=== PATIENT | male | born 2000 | race African-American/Black ===

== ENCOUNTER 2020-10-13 11:20 | Inpatient (IN) | payer OTHER ==
[~2020-10-13] VITALS: Ht 172.7 cm; Wt 66.2 kg
[2020-10-13] MEDS ORDERED: NS 1,000 ML IV ONE ×3 (11:45→14:20)
[2020-10-13 12:23] LABS: BASO % 0.3 % (0.0-1.0); HEMATOCRIT 44.1 % (42.0-52.0); HEMOGLOBIN 14.5 g/dl (13.5-17.5); LYMPH # 0.6 10^3/uL (1.5-5.0); LYMPH % 3.8 % (24.0-44.0); MEAN CORPUSCULAR HEMOGLOBIN 27.7 pg (27.0-33.0); MEAN CORPUSCULAR HGB CONC 32.9 g/dl (32.0-36.5); MEAN CORPUSCULAR VOLUME 84.3 fl (80.0-96.0); MONO # 0.7 10^3/uL (0.0-0.8); MONO % 4.9 % (2.0-8.0); NEUTROPHILS # 13.4 10^3/uL (1.5-8.5); NEUTROPHILS % 90.5 % (36.0-66.0); PLATELET COUNT, AUTOMATED 181 10^3/uL (150-450); RED BLOOD COUNT 5.23 10^6/uL (4.30-6.10); WHITE BLOOD COUNT 14.8 10^3/uL (4.0-10.0)
[2020-10-13] MEDS ORDERED: ACETAMINOPHEN 325 MG TAB PO ONE (12:40)
[2020-10-13] MEDS ORDERED: PANTOPRAZOLE 40MG VIAL (C9113 PER 1) IV ONE (12:50)
[2020-10-13] MEDS ORDERED: METOCLOPRAMIDE INJ 10MG/2ML VIAL (J2765 PER 1) IV ONE (12:50)
[2020-10-13 13:50] LABS: ACETAMINOPHEN LEVEL 3.5 UG/ML (10.0-30.0); ALBUMIN 3.8 GM/DL (3.2-5.2); ALT/SGPT 172 U/L (12-78); BILIRUBIN,DIRECT 0.3 MG/DL (0.0-0.2); BILIRUBIN,TOTAL 0.9 MG/DL (0.2-1.0); BLOOD UREA NITROGEN 9 MG/DL (7-18); CALCIUM LEVEL 9.1 MG/DL (8.5-10.1); CARBON DIOXIDE LEVEL 23 MEQ/L (21-32); CHLORIDE LEVEL 105 MEQ/L (98-107); CPK CREATINE PHOSPHOKINASE 81850 U/L (39-308); CREATININE FOR GFR 1.31 MG/DL (0.70-1.30); ETHYL ALCOHOL (ETHANOL) 0.003 % (0.000-0.010); GLUCOSE, FASTING 75 MG/DL (70-100); POTASSIUM SERUM 3.7 MEQ/L (3.5-5.1); SALICYLATE LEVEL < 1.7 MG/DL (5.0-30.0); SODIUM LEVEL 139 MEQ/L (136-145); THYROID STIMULATING HORMONE 0.443 uIU/ML (0.463-3.98); TOTAL PROTEIN 7.9 GM/DL (6.4-8.2)
[2020-10-13 14:08] LABS: AMPHETAMINES LEVEL URINE NEGATIVE (NEGATIVE); BARBITURATES URINE NEGATIVE (NEGATIVE); BENZODIAZEPINES URINE NEGATIVE (NEGATIVE); CANNABINOIDS URINE NEGATIVE (NEGATIVE); COCAINE METABOLITE URINE NEGATIVE (NEGATIVE); METHADONE URINE NEGATIVE (NEGATIVE); OPIATES URINE NEGATIVE (NEGATIVE); PHENCYCLIDINE URINE NEGATIVE (NEGATIVE)
[2020-10-13 14:37] LABS: RSV AMPLIFICATION NEGATIVE (NEGATIVE)
[2020-10-13] MEDS ORDERED: LR 1,000 ML IV ONE (15:00)
--- NOTE | 2020-10-13 15:38 | HPE ---
HISTORY AND PHYSICAL DATE OF ADMISSION: 10/13/2020 PRINCIPAL DIAGNOSIS: Rhabdomyolysis. 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 He is admitted for rhabdomyolysis with CK of over 81,000. He has been aggressively weight training over the last several weeks, increasing the volume of his lifting significantly. During that period of time, he developed pain in his larger muscle groups chest, back, and thighs in particular. He has been doing a lot of running. Today he was febrile and felt aching all over. He had eaten a few berries off a tree while out running on a dare and attributed his ill feeling to that. He developed a fever to 102 and came to the emergency room. Lab work shows a leukocytosis and he has a CK of over 81,000. His creatinine is 1.3; I do not know his baseline creatinine, we have no available records, and he does not think he has ever had routine lab work done. PAST MEDICAL HISTORY: Entirely benign. PAST SURGICAL HISTORY: Negative. MEDICATIONS: None. He does take creatinine [id number] as part of his weight training program (this can raise serum creatinine). ALLERGIES: None. FAMILY HISTORY: Non-contributory. REVIEW OF SYSTEMS: No palpitations, shortness of breath, cough, frequency, urgency, or dysuria. His urine has become roblero to brownish colored. PHYSICAL EXAMINATION: VITAL SIGNS: Temperature 102 degrees, blood pressure 129/67, pulse 98, respirations 16, 99% O2 saturation. GENERAL APPEARANCE: He is resting comfortably in bed talking to his mother on the phone. HEENT: Pupils are equal, round, and reactive to light. Oropharynx benign. NECK: No masses. LUNGS: Clear. HEART: Regular rate without murmur. ABDOMEN: Soft and nontender with no masses. EXTREMITIES: Good distal pulses. Tender to palpate trapezius. Latissimus, chest muscles, and thighs are nontender to palpate. There is no tense feeling to the muscles they are just tender to touch. LABORATORY DATA: Sodium 139, potassium 3.7, BUN 9, creatinine 1.3, AST 588, ALT 177. CK 81,850. TSH essentially normal. Ethyl alcohol 0.003. Tox screen negative. White count 14.8, hemoglobin 14.5, platelets 181,000. COVID screen negative. IMPRESSION: 1. Rhabdomyolysis. I suspect this is related to the intense weight training he has been undergoing coupled with outdoor exercise, in particularly running. He has significant rhabdomyolysis. His Tsai score is only 2 points, but his CK is significantly elevated so he is being admitted for IV hydration. I have changed his IV fluids from normal saline to lactated ringers, which should help alkalize his urine and avoid the hyperchloremic acidosis that can come from too much normal saline. We will watch his CK closely. We will do serial myoglobins. I have asked for a baseline myoglobin and we will follow this more closely than the CPK (nephrotoxicity actually comes the myoglobin and not the CPK, and the myoglobin peaks and falls much sooner than CK). 2. Fever. I suspect this is related to rhabdomyolysis. He has blood and urine cultures ordered. 3. Mildly elevated creatinine. This could be from the creatinine he takes as a muscle building supplement. He is also fairly heavily muscled, which can raise creatinine while maintaining a normal GFR. I will discuss the case informally with nephrology. We have no baseline creatinine to go by.
[2020-10-13 15:40] LABS: MYOGLOBIN 12780 NG/ML (16-116)
--- NOTE | 2020-10-13 15:46 | REP ---
INDICATION: rhabdo COMPARISON: None. TECHNIQUE: PA and lateral. FINDINGS: The mediastinum and cardiac silhouette are normal. The lung hanks are clear and without acute consolidation, effusion, or pneumothorax. The skeletal structures are intact and normal. IMPRESSION: No acute cardiopulmonary process. <Electronically signed by Bud Moser > 10/13/20 1546
[2020-10-13] MEDS: LR 1,000 ML IV SCH ×3 (16:10→21:32)
[2020-10-13 16:56] LABS: APPEARANCE, URINE CLEAR (CLEAR); BACTERIA, URINE AUTO NEGATIVE (NEGATIVE); BILIRUBIN, URINE AUTO NEGATIVE (NEGATIVE); BLOOD, URINE BLOOD 3+ (NEGATIVE); COLOR, URINE YELLOW (YELLOW); GLUCOSE, URINE (UA) AUTO 1+ mg/dL (NEGATIVE); KETONE, URINE AUTO 1+ mg/dL (NEGATIVE); LEUKOCYTE ESTERASE, URINE AUTO NEGATIVE (NEGATIVE); NITRITE, URINE AUTO NEGATIVE (NEGATIVE); PROTEIN, URINE AUTO NEGATIVE (NEGATIVE); RBC, URINE AUTO 1 /HPF (0-3); SPECIFIC GRAVITY URINE AUTO 1.005 (1.002-1.035); SQUAMOUS EPITHELIAL CELL UR AU 0 /HPF (0-6); UROBILINOGEN, URINE AUTO 0.2 mg/dL (0.0-2.0); WBC, URINE AUTO 2 /HPF (0-3)
[2020-10-13 18:05] LABS: URIC ACID 7.4 MG/DL (3.5-7.2)
[2020-10-13 19:25] LABS: MONO SCRN NEGATIVE (NEGATIVE)
[2020-10-13 19:37] LABS: MYOGLOBIN 12872 NG/ML (16-116)
--- NOTE | 2020-10-13 20:12 | ECGEPIP ---
[facility] - ED Test Date: 2020-10-13 Pat Name: OSEAS JUAREZ Department: Room: - Gender: Male [employer] Supervisor: : [id number] Requested By: VON Gimenez Order Number: [id number] Reading MD: Nayana Funes Measurements Intervals [place] Rate: 89 P: 60 OK: 208 QRS: 79 QRSD: 84 T: 62 QT: 334 QTc: 406 Interpretive Statements Normal sinus rhythm No prior Electronically Signed on 10-13-2020 20:12:42 EDT by Nayana Funes
[2020-10-13 21:25] VITALS: BP 137/75
[2020-10-13] MEDS: ACETAMINOPHEN 650MG ER TAB (TYLENOL ARTHRITIS) PO SCH (21:50)
[2020-10-14] VITALS: BP 110/56
[2020-10-14] MEDS: LR 1,000 ML IV SCH ×3 (02:21→23:05)
[2020-10-14 04:00] VITALS: BP 114/64
[2020-10-14 04:34] LABS: HEMATOCRIT 39.6 % (42.0-52.0); HEMOGLOBIN 13.1 g/dl (13.5-17.5); MEAN CORPUSCULAR HGB CONC 33.1 g/dl (32.0-36.5); MEAN CORPUSCULAR VOLUME 84.6 fl (80.0-96.0); PLATELET COUNT, AUTOMATED 158 10^3/uL (150-450); RED BLOOD COUNT 4.68 10^6/uL (4.30-6.10); WHITE BLOOD COUNT 13.1 10^3/uL (4.0-10.0)
[2020-10-14 05:15] LABS: ALT/SGPT 220 U/L (12-78); BILIRUBIN,TOTAL 0.8 MG/DL (0.2-1.0); BLOOD UREA NITROGEN 7 MG/DL (7-18); CALCIUM LEVEL 7.8 MG/DL (8.5-10.1); CARBON DIOXIDE LEVEL 24 MEQ/L (21-32); CHLORIDE LEVEL 108 MEQ/L (98-107); CREATININE FOR GFR 0.98 MG/DL (0.70-1.30); GLUCOSE, FASTING 78 MG/DL (70-100); MAGNESIUM LEVEL 1.7 MG/DL (1.8-2.4); MYOGLOBIN 7060 NG/ML (16-116); POTASSIUM SERUM 3.8 MEQ/L (3.5-5.1); SODIUM LEVEL 139 MEQ/L (136-145); TOTAL PROTEIN 5.9 GM/DL (6.4-8.2)
[2020-10-14] MEDS ORDERED: MAGNESIUM OXIDE 400MG TAB (MAG-OX) PO ONE (05:40)
[2020-10-14 07:37] VITALS: BP 124/67
[2020-10-14] MEDS: ACETAMINOPHEN 650MG ER TAB (TYLENOL ARTHRITIS) PO SCH ×2 (08:08→20:38)
[2020-10-14] MEDS: ENOXAPARIN 40MG/0.4ML SYRINGE (J1650 PER 10MG) SC SCH (08:09)
--- NOTE | 2020-10-14 10:38 | IPN ---
PROGRESS NOTE DATE: 10/14/2020 SUBJECTIVE: Terrance is in the PCU. His rhabdomyolysis seems to be improving. His myoglobin has peaked last evening, is now on its way down. Liver function tests are elevated. This is not uncommon with severe rhabdomyolysis. It is actually his transaminases that are elevated, AST/ALT; his liver function tests are actually normal including his bilirubin and his GGTP as well as his alkaline phosphatase. Again, this is all consistent with his rhabdomyolysis. Renal function is improved with hydration. Urine is becoming clearer. He has quite a bit of a sore throat. We did a Strep screen that was negative and a Monospot that was negative. OBJECTIVE: VITAL SIGNS: Afebrile, vital signs are stable. Alert, conversant, in no distress. LUNGS: Clear. HEART: Regular rhythm. ABDOMEN: Soft, nontender. EXTREMITIES: No peripheral edema. The muscles of his back including latissimi and trapezius are less tender than yesterday. Chest is less tender. LABORATORY DATA: Sodium 139, potassium 3.8, BUN 7, creatinine 0.9. AST 755, ALT 220, myoglobin is down to 7060. White count 13, hemoglobin 13, platelets 158,000. Urinalysis is 3+ positive for blood but there was only one red cell on microscopic consistent with myoglobin in the urine. IMPRESSION: 1. Rhabdomyolysis secondary to excessive exertion, weight-lifting and running. We will reduce his IV fluids, his myoglobin is coming down. I spoke with his mother on the phone with his permission, discussed the case and his gradual improvement. I expect he will be able to be discharged tomorrow. 2. Fever, probably from the rhabdomyolysis. Pharyngitis workup negative. 3. Pharyngitis, will order some topical spray for this.
[2020-10-14 12:00] VITALS: BP 105/59
[2020-10-14 14:30] VITALS: BP 134/68
[2020-10-14 22:00] VITALS: BP 135/70
[2020-10-15 06:00] VITALS: BP 116/70
[2020-10-15 06:41] LABS: HEMATOCRIT 39.9 % (42.0-52.0); HEMOGLOBIN 13.1 g/dl (13.5-17.5); MEAN CORPUSCULAR HEMOGLOBIN 27.6 pg (27.0-33.0); MEAN CORPUSCULAR HGB CONC 32.8 g/dl (32.0-36.5); MEAN CORPUSCULAR VOLUME 84.2 fl (80.0-96.0); PLATELET COUNT, AUTOMATED 157 10^3/uL (150-450); RED BLOOD COUNT 4.74 10^6/uL (4.30-6.10); WHITE BLOOD COUNT 7.4 10^3/uL (4.0-10.0)
[2020-10-15 08:30] LABS: ALBUMIN 2.7 GM/DL (3.2-5.2); ALT/SGPT 358 U/L (12-78); BILIRUBIN,TOTAL 0.3 MG/DL (0.2-1.0); BLOOD UREA NITROGEN 4 MG/DL (7-18); CALCIUM LEVEL 8.4 MG/DL (8.5-10.1); CARBON DIOXIDE LEVEL 27 MEQ/L (21-32); CHLORIDE LEVEL 109 MEQ/L (98-107); CPK CREATINE PHOSPHOKINASE 123400 U/L (39-308); CREATININE FOR GFR 0.76 MG/DL (0.70-1.30); GLUCOSE, FASTING 85 MG/DL (70-100); MAGNESIUM LEVEL 1.8 MG/DL (1.8-2.4); POTASSIUM SERUM 3.6 MEQ/L (3.5-5.1); SODIUM LEVEL 142 MEQ/L (136-145)
[2020-10-15] MEDS: ACETAMINOPHEN 650MG ER TAB (TYLENOL ARTHRITIS) PO SCH (08:36)
[2020-10-15] MEDS: ENOXAPARIN 40MG/0.4ML SYRINGE (J1650 PER 10MG) SC SCH (08:36)
[2020-10-15] MEDS: LR 1,000 ML IV SCH (08:37)
--- NOTE | 2020-10-15 10:04 | DSES ---
DISCHARGE SUMMARY DATE OF ADMISSION: 10/13/2020 DATE OF DISCHARGE: 10/15/2020 PRINCIPAL DIAGNOSIS: Rhabdomyolysis. SECONDARY DIAGNOSIS: Acute kidney injury (TOD) secondary to rhabdomyolysis. HISTORY: Terrance Connolly was admitted with rhabdomyolysis. Details are per history and physical from admission. HOSPITAL COURSE: Admitted to a medical bed and rehydrated with lactated ringers. He had dark brown urine on admission and this cleared gradually and urine color is back to normal. He had some renal insufficiency on admission. Creatinine was 1.31. After hydration the next day, it was 0.98 and today is 0.76. Clinically, he has had resolution of the severe tender muscles he had in his back and chest on admission. Today those areas are entirely nontender. SIGNIFICANT LABORATORY DATA: Renal function is back to baseline. His CK on admission was 81,000. Myoglobin on admission was 12,780. We really followed the myoglobin more than the CPK; myoglobin is the muscle breakdown product that actually causes the renal injury and its rise and fall is a better marker for resolution than following a CPK, which will lag by a few days. His myoglobin was 12,780 on admission, 12,872 later that day, and then fell on a steady basis and is now 6900 today. As noted before, his urine is entirely clear of pigment. DISCHARGE DISPOSITION: He is discharged to home in improved and stable condition. 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 I have asked to have a copy of this discharge, as well as all his other labs and dictations sent to [facility]. The patient did have pharyngitis on admission that I think was from vomiting. We did a strep screen that was negative and mono spot that was negative. His pharyngitis has resolved by the day of discharge.
[2020-10-15 17:08] LABS: Lyme Disease IgG/IgM Antibodie <0.91 ISR (0.00-0.90); Lyme Disease IgM Ab Quantitati <0.80 index (0.00-0.79)
== END 2020-10-15 11:55 | disposition home or self-care (01) | DRG 558 ==
LOC: M ED 11:20 → M ED INP 11:40 → M PCU 21:25 → M MS5PR 10-14 14:40
PROVIDERS: ADMIT Family Medicine; ATTEND Family Medicine
DX: M62.82 Rhabdomyolysis (principal); N17.9 Acute kidney failure, unspecified; J02.9 Acute pharyngitis, unspecified

== ENCOUNTER 2021-01-04 21:42 | Emergency (ER) | payer OTHER ==
[~2021-01-04] VITALS: Ht 175.3 cm; Wt 64.9 kg
[2021-01-04 21:42] VITALS: BP 136/79
[2021-01-05 00:56] LABS: GC DNA AMPLIFICATION NEGATIVE (NEGATIVE)
== END 2021-01-05 02:30 | disposition home or self-care (01) ==
LOC: M ED 21:42
DX: Z04.89 Encounter for examination and observation for other specified reasons (principal)

== ENCOUNTER 2021-05-05 18:56 | Emergency (ER) | payer OTHER ==
[~2021-05-05] VITALS: Ht 170.2 cm; Wt 65.9 kg
[2021-05-05 18:57] VITALS: BP 143/72
== END 2021-05-05 21:41 | disposition left against medical advice (07) ==
LOC: M ED 18:56
DX: Z53.29 Procedure and treatment not carried out because of patient's decision for other reasons (principal)

== ENCOUNTER 2021-09-09 08:56 | Emergency (ER) | payer OTHER ==
[~2021-09-09] VITALS: Ht 172.7 cm; Wt 65.0 kg
[2021-09-09 08:57] VITALS: BP 155/71
== END 2021-09-09 10:10 | disposition left against medical advice (07) ==
LOC: M ED 08:56
DX: Z53.21 Procedure and treatment not carried out due to patient leaving prior to being seen by health care provider (principal)

== ENCOUNTER 2021-09-11 13:02 | Emergency (ER) | payer OTHER ==
[~2021-09-11] VITALS: Ht 172.7 cm; Wt 65.4 kg
[2021-09-11 14:59] VITALS: BP 133/75
== END 2021-09-11 15:13 | disposition home or self-care (01) ==
LOC: M ED 13:02